=== PATIENT | male | born 1965 | race Caucasian/White ===

== ENCOUNTER 2020-09-15 06:50 | Inpatient (IN) ==
[2020-09-15] MEDS ORDERED: Piperacillin/Tazobactam 3.375 GM in 0.9 % Sodium Chloride Mini Bag 100 ML IVPB ONE (07:05)
[2020-09-15] MEDS ORDERED: Ondansetron 4 MG/2 ML VIAL IVP ONE (07:05)
[2020-09-15] MEDS ORDERED: *HR* HYDROmorphone (PF) 1 MG/ML SYRINGE IVP ONE ×2 (07:05→08:10)
[2020-09-15 07:25] LABS: Basophils # 0.1 K/mcL (0.0-0.2); Basophils % 0.4 %; Eosinophils # 0.1 K/mcL (0.0-0.6); Eosinophils % 0.3 %; Hematocrit 38.1 % (37.5-50.1); Immature Granulocytes % 0.8 % (0-4); Lymphocytes # 1.2 K/mcL (0.6-4.6); Lymphocytes % 6.3 %; Mean Corpuscular HGB Conc 36.7 g/dL (31.6-35.5); Mean Corpuscular Hemoglobin 31.7 pg (28.0-33.3); Mean Corpuscular Volume 86.2 fL (83.0-100.0); Mean Platelet Volume 11.8 fL (9.4-12.4); Monocytes # 1.3 K/mcL (0.0-1.3); Neutrophils # 15.7 K/mcL (1.6-8.9); Platelet Count 147 K/mcL (140-400); Red Blood Count 4.42 M/mcL (4.19-5.50); Red Cell Distribution Width 14.4 % (11.5-14.5); Segmented Neutrophils % 85.2 %; White Blood Count 18.4 K/mcL (4.3-11.1)
[2020-09-15 07:34] LABS: Bilirubin,Urine Negative (Negative); Blood,Urine Moderate (Negative); Clarity,Urine Cloudy (Clear); Glucose,Urine (UA) Normal (Normal); Ketones,Urine Trace mg/dL (Negative); Leukocyte Esterase,Urine Large (Negative); Nitrite,Urine Positive (Negative); Protein,Urine 100 mg/dL (Neg-Trace); Specific Gravity,Urine 1.015 (1.010-1.025); Urobilinogen,Urine Normal (Normal)
[2020-09-15 07:40] LABS: BUN/Creatinine Ratio 24 (6-26); Blood Urea Nitrogen 23 mg/dL (6-20); Carbon Dioxide 23 mEq/L (23-29); Chloride 97 mEq/L (98-107); Glucose 252 mg/dL (70-105); Osmolality,Calculated 282 (280-300); Potassium 4.1 mEq/L (3.5-5.1); Sodium 130 mEq/L (136-145); eGFR For African Americans > 60 (> 60); eGFR For Non-African Americans > 60 (> 60)
[2020-09-15 07:41] LABS: Color,Urine Light Yellow (Yellow)
[2020-09-15] MEDS: 0.9 % Sodium Chloride 1,000 ML IVC SCH ×4 (07:42→15:04)
[2020-09-15 07:46] LABS: Amorphous Sediment,Urine Moderate per hpf (None-Few); Bacteria,Urine Many per hpf (None-Few); Mucus,Urine Few per lpf (None-Few); Squamous Epithelial Cell,Urine Few per hpf (None-Few); WBC,Urine TNTC per hpf (0-3)
[2020-09-15 07:53] LABS: VBG HCO3 23 mEq/L (21-27); VBG PCO2 36 mmHg (41-51); VBG PH 7.42 pH Units (7.32-7.42); VBG PO2 101 mmHg (25-50)
[2020-09-15] MEDS ORDERED: MOM Conc 10 ML UD.LIQ PO PRN (10:32)
[2020-09-15] MEDS ORDERED: D5% in Water 1,000 ML IVC PRN (10:32)
[2020-09-15] MEDS ORDERED: *HR* Dextrose 50 % in Water (Vial) 50 ML VIAL IVP PRN (10:32)
[2020-09-15] MEDS ORDERED: Naloxone 0.4 MG/ML INJ IVP PRN (10:32)
[2020-09-15] MEDS ORDERED: Acetaminophen 325 MG TABLET PO PRN (10:32)
[2020-09-15] MEDS ORDERED: Ondansetron 4 MG/2 ML VIAL IVP PRN (10:32)
[2020-09-15] MEDS ORDERED: Dextrose Gel 15 GM/37.5 ML TUBE PO PRN ×2 (10:32)
[2020-09-15] MEDS ORDERED: Mag Hydrox/Al Hydrox/Simeth 30 ML UDC PO PRN (10:32)
[2020-09-15] MEDS ORDERED: cefTRIAXone 2,000 MG in 0.9 % Sodium Chloride Mini Bag 100 ML IVPB SCH (10:46)
[2020-09-15] MEDS ORDERED: 0.9 % Sodium Chloride 500 ML IVC ONE (10:50)
[2020-09-15] MEDS: Insulin LISPRO 300 UNITS/3 ML VIAL SQ SCH ×2 (11:32→16:38)
[2020-09-15] MEDS: *HR* HYDROcodone/Acet 5/325 mg TABLET PO SCH ×3 (13:51→19:45)
[2020-09-15] MEDS: Gabapentin 300 MG CAPSULE PO SCH ×2 (15:02→19:46)
[2020-09-15] MEDS ORDERED: Insulin LISPRO 300 UNITS/3 ML VIAL SQ SCH (21:00)
[2020-09-15] MEDS ORDERED: Ipratropium/Albuterol Neb 3 ML IH PRN (22:42)
[2020-09-15] MEDS ORDERED: Ipratropium/Albuterol Neb 3 ML ONE (22:46)
[2020-09-15] MEDS: Furosemide 20 MG/2 ML VIAL IVP ONE ×2 (23:27→23:59)
[2020-09-15] MEDS ORDERED: Furosemide 20 MG/2 ML VIAL IVP ONE (23:45)
[2020-09-16 01:17] VITALS: BP 129/84
[2020-09-16] MEDS ORDERED: *HR* Enoxaparin 40 MG/0.4 ML SYRINGE SQ SCH (06:00)
[2020-09-16] MEDS ORDERED: Valsartan 80 MG TABLET PO SCH (09:00)
[2020-09-16] MEDS ORDERED: Multivit/Ca/Min/Fe/FA 1 TAB TABLET PO SCH (09:00)
== END 2020-09-16 01:40 | disposition short-term general hospital (02) | DRG 698 ==
LOC: INPPIK 06:50 → EMEROOPIK 06:50 → INPPIK 09:58
PROVIDERS: ADMIT Family Medicine; ATTEND Family Medicine

== ENCOUNTER 2021-10-29 23:26 | Inpatient (IN) ==
[2021-10-29] MEDS ORDERED: *HR* OxyCODONE/APAP 10/325 TABLET PO ONE (23:44)
[2021-10-30 01:56] LABS: Basophils # 0.1 K/mcL (0.0-0.2); Basophils % 0.8 %; Eosinophils # 0.2 K/mcL (0.0-0.6); Eosinophils % 2.5 %; Hematocrit 43.9 % (37.5-50.1); Hemoglobin 15.1 g/dL (12.9-16.9); Immature Granulocytes % 0.6 % (0-4); Lymphocytes # 1.3 K/mcL (0.6-4.6); Lymphocytes % 14.1 %; Mean Corpuscular HGB Conc 34.4 g/dL (31.6-35.5); Mean Corpuscular Volume 81.4 fL (83.0-100.0); Mean Platelet Volume 11.8 fL (9.4-12.4); Monocytes # 0.7 K/mcL (0.0-1.3); Monocytes % 8.1 %; Neutrophils # 6.6 K/mcL (1.6-8.9); Platelet Count 152 K/mcL (140-400); Red Blood Count 5.39 M/mcL (4.19-5.50); Red Cell Distribution Width 13.3 % (11.5-14.5); Segmented Neutrophils % 73.9 %; White Blood Count 8.9 K/mcL (4.3-11.1)
[2021-10-30 02:14] LABS: BUN/Creatinine Ratio 22 (6-26); Blood Urea Nitrogen 19 mg/dL (6-20); Calcium 9.3 mg/dL (8.6-10.3); Carbon Dioxide 26 mEq/L (23-29); Chloride 95 mEq/L (98-107); Creatine Kinase 62 Units/L (30-223); Glucose 300 mg/dL (70-105); Osmolality,Calculated 283 (280-300); Potassium 4.4 mEq/L (3.5-5.1); Sodium 130 mEq/L (136-145); eGFR For African Americans > 60 (> 60); eGFR For Non-African Americans > 60 (> 60)
[2021-10-30] MEDS ORDERED: Ibuprofen 400 MG TABLET PO PRN (03:20)
[2021-10-30] MEDS ORDERED: Melatonin 3 MG TABLET PO PRN (03:20)
[2021-10-30] MEDS ORDERED: MOM Conc 10 ML UD.LIQ PO PRN (03:20)
[2021-10-30] MEDS ORDERED: Ondansetron ODT 4 MG TAB.RAPDIS SL PRN (03:20)
[2021-10-30] MEDS ORDERED: Mag Hydrox/Al Hydrox/Simeth 30 ML UDC PO PRN (03:20)
[2021-10-30] MEDS ORDERED: Naloxone 0.4 MG/ML INJ IVP PRN (03:20)
[2021-10-30] MEDS ORDERED: Acetaminophen 325 MG TABLET PO PRN (03:20)
[2021-10-30] MEDS ORDERED: Dextrose Gel 15 GM/37.5 ML TUBE PO PRN ×2 (03:20)
[2021-10-30] MEDS ORDERED: *HR* HYDROcodone/Acet 5/325 mg TABLET PO PRN (03:20)
[2021-10-30] MEDS ORDERED: D5% in Water 1,000 ML IVC PRN (03:20)
[2021-10-30] MEDS ORDERED: *HR* Dextrose 50 % in Water (Syg) 50 ML SYRINGE IVP PRN (03:20)
[2021-10-30] MEDS: Gabapentin 400 MG CAPSULE PO SCH ×3 (08:34→22:45)
[2021-10-30] MEDS: Lactobacillus 1 EACH CAP.SPRINK PO SCH ×2 (08:34→22:44)
[2021-10-30] MEDS: Valsartan 80 MG TABLET PO SCH (08:35)
[2021-10-30] MEDS: Ascorbic Acid 500 MG TABLET PO SCH (08:36)
[2021-10-30] MEDS: Cholecalciferol (D-3) 1,000 UNIT (25MCG) TABLET PO SCH (08:37)
[2021-10-30] MEDS: Insulin NPH/REG 70/30 100 UNIT/ML (x5UNIT) SUBQ SCH ×2 (08:37→17:20)
[2021-10-30] MEDS: Metoprolol XL (24 HR) Succ 50 MG TAB.ER.24H PO SCH (08:37)
[2021-10-30] MEDS: Multivit/Ca/Min/Fe/FA 1 TAB TABLET PO SCH (08:37)
[2021-10-30] MEDS: Insulin LISPRO 300 UNITS/3 ML VIAL SUBQ SCH ×4 (08:38→22:47)
[2021-10-30] MEDS: *HR* OxyCODONE Immed Rel 5 MG TABLET PO PRN ×2 (08:51→22:45)
[2021-10-30] MEDS ORDERED: Insulin NPH/REG 70/30 300 UNIT/3 ML per UNIT SUBQ ONE (17:19)
[2021-10-30] MEDS: QUEtiapine Fumarate 25 MG TABLET PO SCH (22:44)
[2021-10-31 07:17] LABS: Hematocrit 40.2 % (37.5-50.1); Hemoglobin 13.9 g/dL (12.9-16.9); Mean Corpuscular HGB Conc 34.6 g/dL (31.6-35.5); Mean Corpuscular Hemoglobin 29.1 pg (28.0-33.3); Mean Corpuscular Volume 84.3 fL (83.0-100.0); Mean Platelet Volume 12.2 fL (9.4-12.4); Platelet Count 146 K/mcL (140-400); Red Blood Count 4.77 M/mcL (4.19-5.50); Red Cell Distribution Width 13.4 % (11.5-14.5); White Blood Count 6.8 K/mcL (4.3-11.1)
[2021-10-31 07:38] LABS: BUN/Creatinine Ratio 28 (6-26); Blood Urea Nitrogen 30 mg/dL (6-20); Calcium 8.6 mg/dL (8.6-10.3); Carbon Dioxide 26 mEq/L (23-29); Chloride 102 mEq/L (98-107); Glucose 150 mg/dL (70-105); Osmolality,Calculated 289 (280-300); Potassium 4.1 mEq/L (3.5-5.1); Sodium 135 mEq/L (136-145); eGFR For African Americans > 60 (> 60); eGFR For Non-African Americans > 60 (> 60)
[2021-10-31] MEDS: Insulin LISPRO 300 UNITS/3 ML VIAL SUBQ SCH ×4 (07:59→23:17)
[2021-10-31] MEDS: Gabapentin 400 MG CAPSULE PO SCH ×3 (08:00→23:15)
[2021-10-31] MEDS: Metoprolol XL (24 HR) Succ 50 MG TAB.ER.24H PO SCH (08:01)
[2021-10-31] MEDS: Ascorbic Acid 500 MG TABLET PO SCH (08:01)
[2021-10-31] MEDS: Lactobacillus 1 EACH CAP.SPRINK PO SCH ×2 (08:01→23:16)
[2021-10-31] MEDS: Valsartan 80 MG TABLET PO SCH (08:02)
[2021-10-31] MEDS: Cholecalciferol (D-3) 1,000 UNIT (25MCG) TABLET PO SCH (08:02)
[2021-10-31] MEDS: Multivit/Ca/Min/Fe/FA 1 TAB TABLET PO SCH (08:03)
[2021-10-31] MEDS: *HR* OxyCODONE Immed Rel 5 MG TABLET PO PRN ×3 (08:20→23:16)
[2021-10-31] MEDS: Insulin NPH/REG 70/30 100 UNIT/ML (x5UNIT) SUBQ SCH ×2 (09:18→17:06)
[2021-10-31] MEDS: *HR* Enoxaparin 40 MG/0.4 ML SYRINGE SQ SCH (09:18)
[2021-10-31 21:59] VITALS: RESP 18
[2021-10-31] MEDS: QUEtiapine Fumarate 25 MG TABLET PO SCH (23:15)
[2021-11-01] MEDS: *HR* Enoxaparin 40 MG/0.4 ML SYRINGE SQ SCH (07:00)
[2021-11-01] MEDS: Insulin NPH/REG 70/30 100 UNIT/ML (x5UNIT) SUBQ SCH ×2 (08:30→17:43)
[2021-11-01] MEDS: Insulin LISPRO 300 UNITS/3 ML VIAL SUBQ SCH ×4 (08:31→20:37)
[2021-11-01] MEDS: Cholecalciferol (D-3) 1,000 UNIT (25MCG) TABLET PO SCH (09:12)
[2021-11-01] MEDS: Lactobacillus 1 EACH CAP.SPRINK PO SCH ×2 (09:12→20:38)
[2021-11-01] MEDS: Metoprolol XL (24 HR) Succ 50 MG TAB.ER.24H PO SCH (09:12)
[2021-11-01] MEDS: Multivit/Ca/Min/Fe/FA 1 TAB TABLET PO SCH (09:13)
[2021-11-01] MEDS: Ascorbic Acid 500 MG TABLET PO SCH (09:13)
[2021-11-01] MEDS: Gabapentin 400 MG CAPSULE PO SCH ×3 (09:13→20:41)
[2021-11-01] MEDS: Valsartan 80 MG TABLET PO SCH (09:48)
[2021-11-01] MEDS: predniSONE 20 MG TABLET PO SCH (11:55)
[2021-11-01] MEDS ORDERED: Insulin NPH/REG 70/30 300 UNIT/3 ML per UNIT SUBQ ONE (17:38)
[2021-11-01] MEDS: QUEtiapine Fumarate 25 MG TABLET PO SCH (20:37)
[2021-11-02] MEDS: *HR* Enoxaparin 40 MG/0.4 ML SYRINGE SQ SCH (05:44)
[2021-11-02 06:05] VITALS: BP 142/74; PULSE 99; TEMP 98; O2SAT 96
[2021-11-02] MEDS: Insulin LISPRO 300 UNITS/3 ML VIAL SUBQ SCH ×3 (08:39→16:22)
[2021-11-02] MEDS: predniSONE 20 MG TABLET PO SCH (08:40)
[2021-11-02] MEDS: Gabapentin 400 MG CAPSULE PO SCH ×2 (08:40→16:22)
[2021-11-02] MEDS: Ascorbic Acid 500 MG TABLET PO SCH (08:40)
[2021-11-02] MEDS: Valsartan 80 MG TABLET PO SCH (08:40)
[2021-11-02] MEDS: Multivit/Ca/Min/Fe/FA 1 TAB TABLET PO SCH (08:41)
[2021-11-02] MEDS: Cholecalciferol (D-3) 1,000 UNIT (25MCG) TABLET PO SCH (08:41)
[2021-11-02] MEDS: Lactobacillus 1 EACH CAP.SPRINK PO SCH (08:41)
[2021-11-02] MEDS: Insulin NPH/REG 70/30 100 UNIT/ML (x5UNIT) SUBQ SCH (08:41)
[2021-11-02] MEDS: Metoprolol XL (24 HR) Succ 50 MG TAB.ER.24H PO SCH (08:41)
== END 2021-11-02 16:45 | disposition home health service (06) | DRG 563 ==
LOC: INPPIK 23:26 → EMEROOPIK 23:26 → INPPIK 10-30 02:14
PROVIDERS: ADMIT Internal Medicine; ATTEND Internal Medicine